=== PATIENT | male | born 1990 | race African-American/Black ===

== ENCOUNTER 2021-05-03 10:22 | Inpatient (IN) ==
[2021-05-03] MEDS ORDERED: ONDANSETRON 4 MG/2 ML VIAL IV STA (12:33)
[2021-05-03] MEDS ORDERED: PANTOPRAZOLE 40 MG VIAL IV STA (12:33)
[2021-05-03] MEDS ORDERED: HYDROmorphone 2 MG/1 ML VIAL IV STA (12:33)
[2021-05-03] MEDS ORDERED: SODIUM CHLORIDE 0.9% 1,000 ML IV STA (12:33)
[2021-05-03 14:22] LABS: Basophils % 0.2 % (0.0-0.8); Eosinophils % 0.4 % (0.00-10.9); Hemoglobin 9.4 GM/DL (14.0-18.0); Immature Granulocytes % 1.8 %; Lymphocytes # 0.6 10*3/uL (1.4-4.0); Lymphocytes % 11.2 % (21.2-54.2); Mean Corpuscular HGB Conc 33.6 GM/DL (32-36); Mean Corpuscular Volume 76.5 FL (87-102); Monocytes % 18.3 % (1.7-12.7); Neutrophils % 68.1 % (38.7-73.9); Platelet Count 145 T/CUMM (130-400); Red Blood Count 3.66 MC/CUMM (3.8-5.5); Red Cell Distribution Width 18.8 % (9.3-17.3); White Blood Count 5.6 T/CUMM (4-12)
[2021-05-03 14:52] LABS: Albumin 2.7 G/DL (3.4-5.0); Bilirubin,Total 1.3 MG/DL (0.20-1.00); Calcium 8.9 MG/DL (8.5-10.1); Osmolality,Calculated 266.4 MOS/KG (273-304); Potassium 3.9 MMOL/L (3.5-5.1); Total Protein 8.5 G/DL (6.4-8.2)
[2021-05-03] MEDS ORDERED: DEXTROSE 50% 25 GM/50 ML VIAL IV PRN (15:35)
[2021-05-03] MEDS ORDERED: hydrALAZINE 20 MG/1 ML VIAL IV PRN (15:35)
[2021-05-03] MEDS ORDERED: GLUCAGON 1 MG VIAL IM PRN (15:35)
[2021-05-03] MEDS ORDERED: COSYNTROPIN 0.25 MG VIAL IV ONE (15:42)
[2021-05-03] MEDS ORDERED: LORazepam 1 MG TABLET PO STA (15:44)
[2021-05-03] MEDS ORDERED: SODIUM CHLORIDE 0.9% 1,000 ML IV SCH (16:00)
[2021-05-03] MEDS: DEXTROSE 5% NACL 0.9% 1,000 ML IV SCH (16:20)
[2021-05-03 16:43] LABS: Eosinophils 2 % (0-10); Lymphocytes 9 % (20-55); Segmented Neutrophils 75 % (50-85); Total Cells Counted 100
[2021-05-03 16:44] LABS: Hypochromasia 2+; Microcytosis Slight; Polychromasia Slight; Target Cells 1+
[2021-05-03 16:46] LABS: Platelet Estimate Normal
[2021-05-03] MEDS: ALBUTEROL 2.5 MG/3 ML NEB RESP TX SCH (19:34)
[2021-05-03 20:18] LABS: Bilirubin,Urine Negative (Negative); Blood, Urine Moderate mg/dL (Negative); Glucose,Urine (UA) Negative (Negative); Hyaline Casts,Urine 47 /LPF (0-3); Ketones,Urine 20 mg/dL (Negative); Mucus,Urine Occasional /LPF (Occasional); Nitrite,Urine Negative (Negative); Protein,Urine 30 MG/DL; RBC,Urine 2 /HPF (0-4); Urine Appearance CLEAR (Clear); Urine Color Amber (Yellow); Urine Specific Gravity 1.049 (1.001-1.035)
[2021-05-03 20:44] LABS: Hematocrit 26.5 VOL% (42.0-52.0); Hemoglobin 8.7 GM/DL (14.0-18.0)
[2021-05-03] MEDS: ACETAMINOPHEN 325 MG TABLET PO PRN (21:43)
[2021-05-03] MEDS: ONDANSETRON 4 MG/2 ML VIAL IV PRN (21:43)
[2021-05-03] MEDS: HYDROmorphone 2 MG/1 ML VIAL IV PRN (21:45)
[2021-05-04] MEDS: ALBUTEROL 2.5 MG/3 ML NEB RESP TX SCH ×4 (01:30→19:50)
[2021-05-04] MEDS ORDERED: COSYNTROPIN 0.25 MG VIAL IV ONE ×2 (04:00→08:00)
[2021-05-04 06:09] LABS: Basophils % 0.8 % (0.0-0.8); Eosinophils # 0.1 10*3/uL (0.0-0.87); Eosinophils % 2.2 % (0.00-10.9); Hematocrit 24.6 VOL% (42.0-52.0); Hemoglobin 8.2 GM/DL (14.0-18.0); Immature Granulocytes % 1.6 %; Immature Granulocytes Absolute 0.06 #; Lymphocytes # 0.4 10*3/uL (1.4-4.0); Lymphocytes % 11.4 % (21.2-54.2); Mean Corpuscular HGB Conc 33.3 GM/DL (32-36); Mean Corpuscular Volume 76.9 FL (87-102); Monocytes % 23.4 % (1.7-12.7); Neutrophils % 60.6 % (38.7-73.9); Platelet Count 121 T/CUMM (130-400); Red Cell Distribution Width 19.2 % (9.3-17.3); White Blood Count 3.7 T/CUMM (4-12)
[2021-05-04 06:30] LABS: Albumin 2.3 G/DL (3.4-5.0); Bilirubin,Total 1.5 MG/DL (0.20-1.00); Calcium 8.6 MG/DL (8.5-10.1); Osmolality,Calculated 264.5 MOS/KG (273-304); Potassium 3.5 MMOL/L (3.5-5.1); Total Protein 7.3 G/DL (6.4-8.2)
[2021-05-04 06:31] LABS: Eosinophils 4 % (0-10); Lymphocytes 12 % (20-55); Platelet Estimate Normal; Segmented Neutrophils 60 % (50-85); Total Cells Counted 100
[2021-05-04 06:32] LABS: Hypochromasia 1+; Microcytosis 1+; Target Cells Few
[2021-05-04] MEDS: PANTOPRAZOLE 40 MG VIAL IV SCH (08:28)
[2021-05-04] MEDS: ONDANSETRON 4 MG/2 ML VIAL IV PRN ×3 (08:28→20:54)
[2021-05-04 08:46] LABS: Hematocrit 23.8 VOL% (42.0-52.0)
[2021-05-04] MEDS: DEXTROSE 5% NACL 0.9% 1,000 ML IV SCH ×2 (08:52→19:38)
[2021-05-04 12:32] LABS: Ferritin 4679.9 ng/ml (26-388)
[2021-05-04] MEDS ORDERED: chlorproMAZINE 25 MG TABLET PO PRN (13:24)
[2021-05-04 13:38] LABS: % Iron Saturation 15.3 % (18-50)
[2021-05-04 13:52] LABS: Folate 2.82 NG/ML (5.38-24.0)
[2021-05-04] MEDS ORDERED: BISACODYL 5 MG TABLET PO ONE (16:00)
[2021-05-04 16:13] LABS: Hematocrit 23.7 VOL% (42.0-52.0); Hemoglobin 7.6 GM/DL (14.0-18.0)
[2021-05-04] MEDS ORDERED: POLYETHYLENE GLYCOL POWDER 255 GM BOTTLE PO ONE (18:00)
[2021-05-05] MEDS: DEXTROSE 5% NACL 0.9% 1,000 ML IV SCH ×3 (01:42→10:48)
[2021-05-05] MEDS ORDERED: POLYETHYLENE GLYCOL POWDER 255 GM BOTTLE PO ONE (05:00)
[2021-05-05] MEDS: ONDANSETRON 4 MG/2 ML VIAL IV PRN ×4 (05:31→20:06)
[2021-05-05] MEDS ORDERED: MAGNESIUM CITRATE 300 ML BOTTLE PO ONE (06:00)
[2021-05-05 06:24] LABS: Basophils % 0.6 % (0.0-0.8); Eosinophils # 0.1 10*3/uL (0.0-0.87); Eosinophils % 3.9 % (0.00-10.9); Hematocrit 20.4 VOL% (42.0-52.0); Hemoglobin 6.9 GM/DL (14.0-18.0); Immature Granulocytes % 2.6 %; Immature Granulocytes Absolute 0.08 #; Lymphocytes # 0.5 10*3/uL (1.4-4.0); Lymphocytes % 15.2 % (21.2-54.2); Mean Corpuscular HGB Conc 33.8 GM/DL (32-36); Mean Corpuscular Volume 76.1 FL (87-102); Neutrophils % 56.7 % (38.7-73.9); Platelet Count 112 T/CUMM (130-400); Red Blood Count 2.68 MC/CUMM (3.8-5.5); Red Cell Distribution Width 18.7 % (9.3-17.3); White Blood Count 3.1 T/CUMM (4-12)
[2021-05-05 06:31] LABS: INR 1.3; PT Patient Result 13.9 SECS (10.5-12.0)
[2021-05-05] MEDS: ALBUTEROL 2.5 MG/3 ML NEB RESP TX SCH ×4 (06:44→18:02)
[2021-05-05 06:54] LABS: Eosinophils 6 % (0-10); Lymphocytes 21 % (20-55); Segmented Neutrophils 45 % (50-85); Total Cells Counted 100
[2021-05-05 06:55] LABS: Calcium 8.3 MG/DL (8.5-10.1); Osmolality,Calculated 272.8 MOS/KG (273-304); Potassium 3.3 MMOL/L (3.5-5.1)
[2021-05-05 06:56] LABS: Anisocytosis 1+; Microcytosis 1+; Platelet Estimate Decreased
[2021-05-05] MEDS ORDERED: SODIUM CHLORIDE 0.9% 1,000 ML IV PRN (07:23)
[2021-05-05] MEDS ORDERED: LACTATED RINGERS 1,000 ML IV SCH (08:00)
[2021-05-05] MEDS: PANTOPRAZOLE 40 MG VIAL IV SCH (09:08)
[2021-05-05] MEDS ORDERED: PROMETHAZINE 25 MG/1 ML VIAL IV ONE (09:13)
[2021-05-05] MEDS ORDERED: PROMETHAZINE 25 MG/1 ML VIAL IM ONE (09:30)
[2021-05-05] MEDS: FOLIC ACID 1 MG TABLET PO SCH (10:15)
[2021-05-05] MEDS ORDERED: propofoL 200 MG/20 ML VIAL IV ONE ×2 (13:16)
[2021-05-05] MEDS ORDERED: LIDOCAINE 2% 5 ML VIAL ONE (13:16)
[2021-05-05] MEDS: HYDROmorphone 2 MG/1 ML VIAL IV PRN ×2 (14:42→20:09)
[2021-05-05] MEDS: FERRIC GLUCONATE COMPLEX 125 MG in SODIUM CHLORIDE 0.9% 100 ML IV SCH (14:44)
[2021-05-05] MEDS: SODIUM CHLOR 0.9% KCL 40 MEQ 40 MEQ/1,000 ML BAG IV SCH (17:38)
[2021-05-05 21:23] LABS: Hematocrit 27.9 VOL% (42.0-52.0)
[2021-05-06] MEDS: ALBUTEROL 2.5 MG/3 ML NEB RESP TX SCH ×4 (01:00→19:34)
[2021-05-06] MEDS: ONDANSETRON 4 MG/2 ML VIAL IV PRN ×2 (01:26→21:28)
[2021-05-06] MEDS: HYDROmorphone 2 MG/1 ML VIAL IV PRN ×3 (01:28→21:25)
[2021-05-06 05:48] LABS: Basophils % 0.2 % (0.0-0.8); Eosinophils # 0.1 10*3/uL (0.0-0.87); Eosinophils % 1.7 % (0.00-10.9); Hematocrit 27.8 VOL% (42.0-52.0); Hemoglobin 9.1 GM/DL (14.0-18.0); Immature Granulocytes % 4.3 %; Immature Granulocytes Absolute 0.18 #; Lymphocytes # 0.4 10*3/uL (1.4-4.0); Lymphocytes % 10.1 % (21.2-54.2); Mean Corpuscular HGB Conc 32.7 GM/DL (32-36); Mean Corpuscular Volume 78.5 FL (87-102); Monocytes % 22.7 % (1.7-12.7); Platelet Count 97 T/CUMM (130-400); Red Blood Count 3.54 MC/CUMM (3.8-5.5); Red Cell Distribution Width 18.8 % (9.3-17.3); White Blood Count 4.2 T/CUMM (4-12)
[2021-05-06 06:21] LABS: Calcium 8.4 MG/DL (8.5-10.1); Osmolality,Calculated 270.8 MOS/KG (273-304)
[2021-05-06] MEDS: SODIUM CHLOR 0.9% KCL 40 MEQ 40 MEQ/1,000 ML BAG IV SCH ×2 (06:33→23:46)
[2021-05-06 06:53] LABS: Band Neutrophils 3 % (0-10); Eosinophils 1 % (0-10); Lymphocytes 7 % (20-55); Segmented Neutrophils 69 % (50-85); Total Cells Counted 100
[2021-05-06 06:54] LABS: Hypochromasia 1+; Microcytosis 1+; Platelet Estimate Decreased; Target Cells Few
[2021-05-06] MEDS ORDERED: LACTATED RINGERS 1,000 ML IV SCH (08:00)
[2021-05-06] MEDS: PANTOPRAZOLE 40 MG VIAL IV SCH (08:18)
[2021-05-06 09:52] LABS: Total Protein 7.1 G/DL (6.4-8.2)
[2021-05-06] MEDS ORDERED: ONDANSETRON 4 MG/2 ML VIAL ONE (10:56)
[2021-05-06] MEDS ORDERED: propofoL 200 MG/20 ML VIAL IV ONE (10:56)
[2021-05-06] MEDS ORDERED: LIDOCAINE 2% 5 ML VIAL ONE (10:56)
[2021-05-06] MEDS ORDERED: PHENYLEPHRINE 1 MG/10 ML SYRINGE IV ONE (11:10)
[2021-05-06] MEDS: FLUCONAZOLE INJ 100 MG/50 ML PREMIX IV SCH (11:55)
[2021-05-06] MEDS: FERRIC GLUCONATE COMPLEX 125 MG in SODIUM CHLORIDE 0.9% 100 ML IV SCH (11:58)
[2021-05-06] MEDS: FOLIC ACID 1 MG TABLET PO SCH (11:58)
[2021-05-07] MEDS: ALBUTEROL 2.5 MG/3 ML NEB RESP TX SCH ×4 (00:03→20:45)
[2021-05-07] MEDS: HYDROmorphone 2 MG/1 ML VIAL IV PRN ×4 (02:51→23:15)
[2021-05-07] MEDS: ONDANSETRON 4 MG/2 ML VIAL IV PRN ×3 (02:53→23:13)
[2021-05-07] MEDS: PANTOPRAZOLE 40 MG VIAL IV SCH (08:36)
[2021-05-07] MEDS: FOLIC ACID 1 MG TABLET PO SCH (08:36)
[2021-05-07 09:16] LABS: Basophils % 0.5 % (0.0-0.8); Eosinophils # 0.1 10*3/uL (0.0-0.87); Eosinophils % 1.5 % (0.00-10.9); Hematocrit 26.9 VOL% (42.0-52.0); Hemoglobin 8.7 GM/DL (14.0-18.0); Immature Granulocytes Absolute 0.29 #; Lymphocytes # 0.4 10*3/uL (1.4-4.0); Lymphocytes % 10.4 % (21.2-54.2); Mean Corpuscular HGB Conc 32.3 GM/DL (32-36); Mean Corpuscular Volume 79.1 FL (87-102); Monocytes % 15.8 % (1.7-12.7); Neutrophils % 64.8 % (38.7-73.9); Platelet Count 106 T/CUMM (130-400); White Blood Count 4.1 T/CUMM (4-12)
[2021-05-07] MEDS: FERRIC GLUCONATE COMPLEX 125 MG in SODIUM CHLORIDE 0.9% 100 ML IV SCH (09:47)
[2021-05-07 09:52] LABS: Anisocytosis 2+; Band Neutrophils 9 % (0-10); Eosinophils 3 % (0-10); Lymphocytes 10 % (20-55); Nucleated Red Blood Cells 1 (0-5); Segmented Neutrophils 63 % (50-85); Total Cells Counted 100
[2021-05-07 09:53] LABS: Hypochromasia 1+; Macrocytosis Slight; Platelet Estimate Adequate
[2021-05-07] MEDS: FLUCONAZOLE INJ 100 MG/50 ML PREMIX IV SCH (11:16)
[2021-05-07] MEDS: SODIUM CHLOR 0.9% KCL 40 MEQ 40 MEQ/1,000 ML BAG IV SCH (13:06)
[2021-05-07] MEDS: ACETAMINOPHEN 325 MG TABLET PO PRN (18:17)
[2021-05-08] MEDS: ALBUTEROL 2.5 MG/3 ML NEB RESP TX SCH ×4 (00:42→19:45)
[2021-05-08] MEDS: SODIUM CHLOR 0.9% KCL 40 MEQ 40 MEQ/1,000 ML BAG IV SCH ×2 (04:15→16:56)
[2021-05-08] MEDS: ACETAMINOPHEN 325 MG TABLET PO PRN (04:18)
[2021-05-08 06:38] LABS: Calcium 8.8 MG/DL (8.5-10.1); Osmolality,Calculated 257.8 MOS/KG (273-304); Potassium 4.8 MMOL/L (3.5-5.1)
[2021-05-08 07:39] LABS: Basophils % 0.5 % (0.0-0.8); Eosinophils # 0.2 10*3/uL (0.0-0.87); Eosinophils % 4.5 % (0.00-10.9); Hematocrit 25.4 VOL% (42.0-52.0); Hemoglobin 8.3 GM/DL (14.0-18.0); Immature Granulocytes % 6.2 %; Immature Granulocytes Absolute 0.25 #; Lymphocytes # 0.5 10*3/uL (1.4-4.0); Lymphocytes % 11.9 % (21.2-54.2); Mean Corpuscular HGB Conc 32.7 GM/DL (32-36); Mean Corpuscular Volume 77.2 FL (87-102); Monocytes % 20.8 % (1.7-12.7); Neutrophils % 56.1 % (38.7-73.9); Platelet Count 86 T/CUMM (130-400); Red Blood Count 3.29 MC/CUMM (3.8-5.5); Red Cell Distribution Width 18.7 % (9.3-17.3)
[2021-05-08] MEDS: HYDROmorphone 2 MG/1 ML VIAL IV PRN ×3 (07:40→22:01)
[2021-05-08] MEDS: ONDANSETRON 4 MG/2 ML VIAL IV PRN ×3 (07:54→22:01)
[2021-05-08 09:15] LABS: Band Neutrophils 5 % (0-10); Eosinophils 5 % (0-10); Lymphocytes 11 % (20-55); Platelet Estimate Decreased; Smudge Cells Few; Total Cells Counted 100
[2021-05-08 09:16] LABS: Anisocytosis 2+; Hypochromasia 1+; Segmented Neutrophils 60 % (50-85)
[2021-05-08] MEDS: FERRIC GLUCONATE COMPLEX 125 MG in SODIUM CHLORIDE 0.9% 100 ML IV SCH (10:45)
[2021-05-08] MEDS: FOLIC ACID 1 MG TABLET PO SCH (10:46)
[2021-05-08] MEDS: PANTOPRAZOLE 40 MG VIAL IV SCH ×2 (10:49→21:45)
[2021-05-08] MEDS: IBUPROFEN 800 MG TABLET PO PRN (12:43)
[2021-05-08] MEDS ORDERED: FLUCONAZOLE INJ 100 MG/50 ML PREMIX IV SCH (13:00)
[2021-05-08] MEDS: FLUCONAZOLE INJ 100 MG/50 ML PREMIX IV SCH (13:17)
[2021-05-08] MEDS: PIPERACILLIN/TAZOBACTAM 3,375 MG in SODIUM CHLORIDE 0.9% 100 ML IV SCH ×2 (16:57→22:00)
[2021-05-09 00:21] LABS: Blood, Urine Moderate mg/dL (Negative); Glucose,Urine (UA) Negative (Negative); Ketones,Urine 20 mg/dL (Negative); Mucus,Urine Many /LPF (Occasional); Nitrite,Urine Negative (Negative); Protein,Urine 30 MG/DL; RBC,Urine 4 /HPF (0-4); Urine Appearance CLEAR (Clear); Urine Color Amber (Yellow); Urine Specific Gravity 1.028 (1.001-1.035)
[2021-05-09 00:23] LABS: Bilirubin,Urine Small mg/dL (Negative)
[2021-05-09] MEDS: ALBUTEROL 2.5 MG/3 ML NEB RESP TX SCH ×4 (00:40→19:50)
[2021-05-09] MEDS: ACETAMINOPHEN 325 MG TABLET PO PRN ×2 (04:11→23:55)
[2021-05-09] MEDS: ONDANSETRON 4 MG/2 ML VIAL IV PRN ×3 (06:02→23:56)
[2021-05-09] MEDS: IBUPROFEN 800 MG TABLET PO PRN ×2 (06:02→20:28)
[2021-05-09] MEDS: PIPERACILLIN/TAZOBACTAM 3,375 MG in SODIUM CHLORIDE 0.9% 100 ML IV SCH ×3 (06:11→23:56)
[2021-05-09 06:24] LABS: Bilirubin,Total 4.1 MG/DL (0.20-1.00); Calcium 8.2 MG/DL (8.5-10.1); Osmolality,Calculated 261.5 MOS/KG (273-304); Potassium 5.3 MMOL/L (3.5-5.1); Total Protein 6.7 G/DL (6.4-8.2)
[2021-05-09] MEDS: HYDROmorphone 2 MG/1 ML VIAL IV PRN ×3 (07:51→23:54)
[2021-05-09] MEDS: PANTOPRAZOLE 40 MG VIAL IV SCH ×3 (07:52→20:29)
[2021-05-09 08:47] LABS: Target Cells 1+
[2021-05-09 08:48] LABS: Anisocytosis 1+; Hypochromasia 3+; Microcytosis 2+; Platelet Estimate Adequate; Polychromasia Slight
[2021-05-09] MEDS: FERRIC GLUCONATE COMPLEX 125 MG in SODIUM CHLORIDE 0.9% 100 ML IV SCH (09:34)
[2021-05-09] MEDS: FOLIC ACID 1 MG TABLET PO SCH (09:36)
[2021-05-09 10:00] LABS: Basophils % 0.2 % (0.0-0.8); Eosinophils # 0.2 10*3/uL (0.0-0.87); Eosinophils % 4.1 % (0.00-10.9); Hematocrit 26.4 VOL% (42.0-52.0); Hemoglobin 8.9 GM/DL (14.0-18.0); Immature Granulocytes % 6.7 %; Immature Granulocytes Absolute 0.31 #; Lymphocytes # 0.4 10*3/uL (1.4-4.0); Lymphocytes % 8.9 % (21.2-54.2); Mean Corpuscular HGB Conc 33.7 GM/DL (32-36); Mean Corpuscular Volume 78.3 FL (87-102); Monocytes % 14.6 % (1.7-12.7); Neutrophils % 65.5 % (38.7-73.9); Platelet Count 76 T/CUMM (130-400); Red Blood Count 3.37 MC/CUMM (3.8-5.5); Red Cell Distribution Width 18.9 % (9.3-17.3); White Blood Count 4.6 T/CUMM (4-12)
[2021-05-09 10:20] LABS: Band Neutrophils 1 % (0-10); Eosinophils 3 % (0-10); Lymphocytes 5 % (20-55); Segmented Neutrophils 76 % (50-85); Total Cells Counted 100
[2021-05-09] MEDS: FLUCONAZOLE INJ 100 MG/50 ML PREMIX IV SCH (13:15)
[2021-05-09] MEDS: LORazepam 0.5 MG TABLET PO PRN (15:11)
[2021-05-09] MEDS: SODIUM CHLOR 0.9% KCL 40 MEQ 40 MEQ/1,000 ML BAG IV SCH (16:41)
[2021-05-10] MEDS: ALBUTEROL 2.5 MG/3 ML NEB RESP TX SCH ×2 (02:12→07:09)
[2021-05-10] MEDS: SODIUM CHLOR 0.9% KCL 40 MEQ 40 MEQ/1,000 ML BAG IV SCH ×2 (02:35→14:26)
[2021-05-10] MEDS: PIPERACILLIN/TAZOBACTAM 3,375 MG in SODIUM CHLORIDE 0.9% 100 ML IV SCH (06:36)
[2021-05-10 07:01] LABS: Albumin 1.9 G/DL (3.4-5.0); Bilirubin,Total 3.1 MG/DL (0.20-1.00); Calcium 8.2 MG/DL (8.5-10.1); Osmolality,Calculated 261.7 MOS/KG (273-304); Potassium 4.3 MMOL/L (3.5-5.1); Total Protein 6.8 G/DL (6.4-8.2)
[2021-05-10 07:46] LABS: Hepatitis B Core IgM Quant 0.16 Index; Hepatitis B Surface Ag Quant < 0.10 Index; Hepatitis B Surface Ag Result Non-Reactive (NonReactive); Hepatitis C Virus Ab Quant 0.29 Index; Hepatitis C Virus Ab Result Non-Reactive (NonReactive)
[2021-05-10 08:25] LABS: Total Protein (Chem) 7.1 G/DL (6.4-8.3)
[2021-05-10 08:26] LABS: Basophils % 0.5 % (0.0-0.8); Eosinophils # 0.1 10*3/uL (0.0-0.87); Eosinophils % 2.5 % (0.00-10.9); Hematocrit 25.2 VOL% (42.0-52.0); Hemoglobin 8.3 GM/DL (14.0-18.0); Immature Granulocytes % 8.5 %; Immature Granulocytes Absolute 0.34 #; Lymphocytes # 0.6 10*3/uL (1.4-4.0); Lymphocytes % 14.1 % (21.2-54.2); Mean Corpuscular HGB Conc 32.9 GM/DL (32-36); Mean Corpuscular Volume 77.8 FL (87-102); Monocytes % 21.4 % (1.7-12.7); Red Blood Count 3.24 MC/CUMM (3.8-5.5); Red Cell Distribution Width 18.6 % (9.3-17.3)
[2021-05-10 08:28] LABS: Platelet Count 51 T/CUMM (130-400)
[2021-05-10 08:51] LABS: Eosinophils 1 % (0-10); Lymphocytes 12 % (20-55); Platelet Estimate Decreased; Segmented Neutrophils 74 % (50-85); Total Cells Counted 100
[2021-05-10 08:52] LABS: Hypochromasia 1+; Microcytosis 1+
[2021-05-10] MEDS: FOLIC ACID 1 MG TABLET PO SCH (10:14)
[2021-05-10] MEDS: PANTOPRAZOLE 40 MG VIAL IV SCH (10:15)
[2021-05-10] MEDS: FERRIC GLUCONATE COMPLEX 125 MG in SODIUM CHLORIDE 0.9% 100 ML IV SCH (10:15)
[2021-05-10] MEDS: ONDANSETRON 4 MG/2 ML VIAL IV PRN (10:32)
[2021-05-10] MEDS: HYDROmorphone 2 MG/1 ML VIAL IV PRN (10:38)
[2021-05-10 11:09] LABS: Albumin (SPE) 3.2 G/DL (3.2-5.3); Albumin (SPE) Rel % 44.7 %; Alpha 1 (SPE) 0.3 G/DL (0.1-0.4); Alpha 1 (SPE) Rel % 4.8 %; Alpha 2 (SPE) 0.9 G/DL (0.4-1.0); Alpha 2 (SPE) Rel % 12.3 %; Beta (SPE) 0.7 G/DL (0.5-1.1); Beta (SPE) Rel % 10.5 %; Gamma (SPE) Rel % 27.7 %
[2021-05-10 11:34] VITALS: BP 117/62
[2021-05-10 11:49] LABS: Immuno Free Light Chain Kappa 8.15 MG/DL (0.33-1.94); Immuno Free Light Chain Lambda 7.43 MG/DL (0.57-2.63); Immuno Free Light Chain Ratio 1.1 MG/DL (0.26-1.65)
[2021-05-10] MEDS: LORazepam 0.5 MG TABLET PO PRN (11:59)
[2021-05-10] MEDS: FLUCONAZOLE INJ 100 MG/50 ML PREMIX IV SCH (12:01)
[2021-05-10] MEDS ORDERED: PANTOPRAZOLE 40 MG TABLET PO SCH (21:00)
== END 2021-05-10 14:25 | disposition home or self-care (01) | DRG 975 ==
LOC: SUATTDRO → N.ED 10:22 → SUATTDRO 15:35 → N.EDINP 15:35 → N.5E 05-04 04:44
PROVIDERS: ADMIT Internal Medicine; ATTEND Internal Medicine

== ENCOUNTER 2021-05-14 23:32 | Inpatient (IN) ==
[2021-05-14] MEDS ORDERED: SODIUM CHLORIDE 0.9% 2,000 ML IV STA (23:53)
[2021-05-15 01:45] LABS: Albumin 1.8 G/DL (3.4-5.0); Bilirubin,Total 2.3 MG/DL (0.20-1.00); Calcium 8.2 MG/DL (8.5-10.1); Osmolality,Calculated 263.1 MOS/KG (273-304); Potassium 4.5 MMOL/L (3.5-5.1); Total Protein 6.6 G/DL (6.4-8.2)
[2021-05-15 02:05] LABS: Bacteria,Urine Few /HPF (Few); Blood, Urine Large mg/dL (Negative); Glucose,Urine (UA) Negative (Negative); Hyaline Casts,Urine 10 /LPF (0-3); Ketones,Urine Negative (Negative); Mucus,Urine Few /LPF (Occasional); Nitrite,Urine Negative (Negative); Protein,Urine 30 MG/DL; RBC,Urine 13 /HPF (0-4); Squamous Epithelial Cell,Urine Occasional /HPF (0-10); Urine Appearance CLOUDY (Clear); Urine Color Amber (Yellow); Urine Specific Gravity 1.024 (1.001-1.035)
[2021-05-15 02:06] LABS: Bilirubin,Urine Small mg/dL (Negative)
[2021-05-15 02:09] LABS: Basophils % 0.4 % (0.0-0.8); Eosinophils % 0.4 % (0.00-10.9); Immature Granulocytes % 16.5 %; Immature Granulocytes Absolute 0.43 #; Lymphocytes # 0.4 10*3/uL (1.4-4.0); Lymphocytes % 14.9 % (21.2-54.2); Mean Corpuscular Volume 78.4 FL (87-102); Monocytes % 20.3 % (1.7-12.7); Neutrophils % 47.5 % (38.7-73.9); Red Blood Count 2.27 MC/CUMM (3.8-5.5); Red Cell Distribution Width 18.9 % (9.3-17.3); White Blood Count 2.6 T/CUMM (4-12)
[2021-05-15 02:14] LABS: Hematocrit 17.8 VOL% (42.0-52.0); Hemoglobin 5.7 GM/DL (14.0-18.0); Platelet Count 22 T/CUMM (130-400)
[2021-05-15 02:39] LABS: Band Neutrophils 1 % (0-10); Lymphocytes 12 % (20-55); Metamyelocytes 2 %; Myelocytes 1 %; Platelet Estimate Decreased; Segmented Neutrophils 74 % (50-85); Total Cells Counted 100
[2021-05-15 02:40] LABS: Hypochromasia 2+; Microcytosis 1+
[2021-05-15] MEDS ORDERED: SODIUM CHLORIDE 0.9% 1,000 ML IV PRN ×2 (03:27→03:28)
[2021-05-15] MEDS ORDERED: GLUCAGON 1 MG VIAL IM PRN (05:19)
[2021-05-15] MEDS ORDERED: DEXTROSE 50% 25 GM/50 ML VIAL IV PRN (05:19)
[2021-05-15] MEDS ORDERED: BISACODYL 5 MG TABLET PO PRN (05:20)
[2021-05-15] MEDS: ONDANSETRON 4 MG/2 ML VIAL IV PRN (07:06)
[2021-05-15] MEDS: SODIUM CHLORIDE 0.9% 1,000 ML IV SCH ×2 (07:06→16:34)
[2021-05-15] MEDS ORDERED: CEFUROXIME 500 MG TABLET PO SCH (09:00)
[2021-05-15] MEDS: PANTOPRAZOLE 40 MG TABLET PO SCH ×2 (09:14→22:11)
[2021-05-15] MEDS: FOLIC ACID 1 MG TABLET PO SCH (09:14)
[2021-05-15] MEDS: NYSTATIN 500,000 UNIT/5 ML UDCUP PO SCH ×3 (09:14→22:11)
[2021-05-15] MEDS: MORPHINE 2 MG/1 ML SYRINGE IV PRN (09:15)
[2021-05-15] MEDS: FLUCONAZOLE 200 MG TABLET PO SCH (09:15)
[2021-05-15] MEDS: ACETAMINOPHEN 325 MG TABLET PO PRN (12:32)
[2021-05-15] MEDS: IBUPROFEN 400 MG TABLET PO PRN (16:32)
[2021-05-16] MEDS: ACETAMINOPHEN 325 MG TABLET PO PRN ×2 (01:08→14:19)
[2021-05-16] MEDS: SODIUM CHLORIDE 0.9% 1,000 ML IV SCH ×3 (01:10→18:36)
[2021-05-16] MEDS: ONDANSETRON 4 MG/2 ML VIAL IV PRN ×4 (04:59→19:36)
[2021-05-16] MEDS: MORPHINE 2 MG/1 ML SYRINGE IV PRN ×2 (04:59→15:16)
[2021-05-16 06:20] LABS: Basophils % 0.8 % (0.0-0.8); Eosinophils % 1.1 % (0.00-10.9); Hematocrit 24.8 VOL% (42.0-52.0); Immature Granulocytes % 23.1 %; Immature Granulocytes Absolute 0.61 #; Lymphocytes # 0.3 10*3/uL (1.4-4.0); Lymphocytes % 12.1 % (21.2-54.2); Mean Corpuscular HGB Conc 32.3 GM/DL (32-36); Mean Corpuscular Volume 82.4 FL (87-102); Monocytes % 18.2 % (1.7-12.7); Neutrophils % 44.7 % (38.7-73.9); White Blood Count 2.6 T/CUMM (4-12)
[2021-05-16 06:25] LABS: Red Blood Count 3.01 MC/CUMM (3.8-5.5)
[2021-05-16 06:27] LABS: Platelet Count 24 T/CUMM (130-400)
[2021-05-16 06:45] LABS: Band Neutrophils 3 % (0-10); Eosinophils 3 % (0-10); Hypochromasia 1+; Lymphocytes 10 % (20-55); Microcytosis 1+; Platelet Estimate Decreased; Segmented Neutrophils 70 % (50-85); Total Cells Counted 100
[2021-05-16 06:53] LABS: Albumin 1.7 G/DL (3.4-5.0); Bilirubin,Total 2.7 MG/DL (0.20-1.00); Calcium 7.8 MG/DL (8.5-10.1); Osmolality,Calculated 266.5 MOS/KG (273-304); Potassium 4.6 MMOL/L (3.5-5.1)
[2021-05-16] MEDS: PANTOPRAZOLE 40 MG TABLET PO SCH ×2 (09:18→20:57)
[2021-05-16] MEDS: PROMETHAZINE INJ 25 MG in SODIUM CHLORIDE 0.9% 50 ML IV PRN ×3 (09:18→21:51)
[2021-05-16] MEDS: FOLIC ACID 1 MG TABLET PO SCH (09:18)
[2021-05-16] MEDS: FLUCONAZOLE 200 MG TABLET PO SCH (09:18)
[2021-05-16] MEDS: NYSTATIN 500,000 UNIT/5 ML UDCUP PO SCH ×3 (09:19→20:57)
[2021-05-16] MEDS: IBUPROFEN 400 MG TABLET PO PRN (16:31)
[2021-05-16] MEDS ORDERED: ACETAMINOPHEN 325 MG TABLET PO PRN (16:46)
[2021-05-17] MEDS: SODIUM CHLORIDE 0.9% 1,000 ML IV SCH ×4 (02:10→23:03)
[2021-05-17 04:39] LABS: Basophils % 0.4 % (0.0-0.8); Eosinophils # 0.1 10*3/uL (0.0-0.87); Eosinophils % 1.9 % (0.00-10.9); Hematocrit 24.3 VOL% (42.0-52.0); Hemoglobin 7.8 GM/DL (14.0-18.0); Immature Granulocytes % 16.8 %; Immature Granulocytes Absolute 0.45 #; Lymphocytes # 0.4 10*3/uL (1.4-4.0); Lymphocytes % 13.4 % (21.2-54.2); Mean Corpuscular HGB Conc 32.1 GM/DL (32-36); Mean Corpuscular Volume 80.7 FL (87-102); Monocytes % 20.9 % (1.7-12.7); Neutrophils % 46.6 % (38.7-73.9); Red Blood Count 3.01 MC/CUMM (3.8-5.5); Red Cell Distribution Width 19.5 % (9.3-17.3); White Blood Count 2.7 T/CUMM (4-12)
[2021-05-17 04:44] LABS: Platelet Count 24 T/CUMM (130-400)
[2021-05-17 04:52] LABS: Albumin 1.4 G/DL (3.4-5.0); Bilirubin,Total 2.8 MG/DL (0.20-1.00); Calcium 7.8 MG/DL (8.5-10.1); Osmolality,Calculated 266.5 MOS/KG (273-304); Potassium 4.7 MMOL/L (3.5-5.1); Total Protein 5.8 G/DL (6.4-8.2)
[2021-05-17 04:55] LABS: Band Neutrophils 1 % (0-10); Eosinophils 2 % (0-10); Lymphocytes 9 % (20-55); Platelet Estimate Decreased; Segmented Neutrophils 68 % (50-85); Total Cells Counted 100
[2021-05-17 04:57] LABS: Hypochromasia 1+; Microcytosis 1+
[2021-05-17] MEDS: PROMETHAZINE INJ 25 MG in SODIUM CHLORIDE 0.9% 50 ML IV PRN ×3 (05:42→21:19)
[2021-05-17] MEDS: ONDANSETRON 4 MG/2 ML VIAL IV PRN ×2 (09:00→17:43)
[2021-05-17] MEDS: PANTOPRAZOLE 40 MG TABLET PO SCH (09:02)
[2021-05-17] MEDS: FOLIC ACID 1 MG TABLET PO SCH (09:02)
[2021-05-17] MEDS: NYSTATIN 500,000 UNIT/5 ML UDCUP PO SCH ×3 (09:02→20:22)
[2021-05-17] MEDS: FLUCONAZOLE 200 MG TABLET PO SCH (09:06)
[2021-05-17] MEDS: MORPHINE 2 MG/1 ML SYRINGE IV PRN ×2 (13:27→21:20)
[2021-05-17] MEDS: ACETAMINOPHEN 650 MG SUPP RECTAL PRN (14:38)
[2021-05-17] MEDS: IBUPROFEN 400 MG TABLET PO PRN (17:43)
[2021-05-18] MEDS: PROMETHAZINE INJ 25 MG in SODIUM CHLORIDE 0.9% 50 ML IV PRN ×3 (04:37→21:25)
[2021-05-18 07:12] LABS: Basophils % 0.8 % (0.0-0.8); Eosinophils # 0.1 10*3/uL (0.0-0.87); Eosinophils % 2.1 % (0.00-10.9); Hematocrit 23.3 VOL% (42.0-52.0); Hemoglobin 7.3 GM/DL (14.0-18.0); Immature Granulocytes % 17.6 %; Immature Granulocytes Absolute 0.42 #; Lymphocytes # 0.4 10*3/uL (1.4-4.0); Lymphocytes % 15.5 % (21.2-54.2); Mean Corpuscular HGB Conc 31.3 GM/DL (32-36); Mean Corpuscular Volume 82.6 FL (87-102); Monocytes % 20.6 % (1.7-12.7); Neutrophils % 43.4 % (38.7-73.9); Red Blood Count 2.82 MC/CUMM (3.8-5.5); Red Cell Distribution Width 19.8 % (9.3-17.3); White Blood Count 2.4 T/CUMM (4-12)
[2021-05-18 07:17] LABS: Platelet Count 25 T/CUMM (130-400)
[2021-05-18] MEDS: SODIUM CHLORIDE 0.9% 1,000 ML IV SCH ×2 (07:26→21:24)
[2021-05-18 07:39] LABS: Eosinophils 2 % (0-10); Lymphocytes 7 % (20-55); Platelet Estimate Decreased; Segmented Neutrophils 74 % (50-85); Total Cells Counted 100
[2021-05-18 07:40] LABS: Hypochromasia 1+; Microcytosis 1+
[2021-05-18 07:48] LABS: Albumin 1.3 G/DL (3.4-5.0); Bilirubin,Total 3.6 MG/DL (0.20-1.00); Calcium 7.7 MG/DL (8.5-10.1); Potassium 4.7 MMOL/L (3.5-5.1); Total Protein 5.7 G/DL (6.4-8.2)
[2021-05-18] MEDS ORDERED: SODIUM CHLORIDE 0.9% 1,000 ML IV PRN (08:21)
[2021-05-18] MEDS: PANTOPRAZOLE 40 MG VIAL IV SCH (09:09)
[2021-05-18] MEDS: FLUCONAZOLE 200 MG TABLET PO SCH (09:09)
[2021-05-18] MEDS: NYSTATIN 500,000 UNIT/5 ML UDCUP PO SCH ×3 (09:09→20:06)
[2021-05-18] MEDS: FOLIC ACID 1 MG TABLET PO SCH (09:09)
[2021-05-18] MEDS ORDERED: LORazepam 2 MG/1 ML VIAL IV ONE (12:10)
[2021-05-18] MEDS ORDERED: SULFAMETHOX/TRIMETHOPRIM 800-160 MG TABLET PO SCH (13:00)
[2021-05-18] MEDS: ONDANSETRON 4 MG/2 ML VIAL IV PRN (15:48)
[2021-05-18] MEDS: MORPHINE 2 MG/1 ML SYRINGE IV PRN (15:49)
[2021-05-18] MEDS: IBUPROFEN 400 MG TABLET PO PRN (16:02)
[2021-05-18 16:36] LABS: % CD4 (T Cells) 2 % (32-64); % CD8 (T Cells) 58 % (15-40); 4/8 Ratio 0 (>=0.9)
[2021-05-18] MEDS: SULFAMETH IV SCH (17:24)
[2021-05-18] MEDS: DEXTROSE 5% IV SCH (17:24)
[2021-05-18] MEDS: TRIMETH IV SCH (17:24)
[2021-05-18] MEDS: ACETAMINOPHEN 650 MG SUPP RECTAL PRN (20:09)
[2021-05-19] MEDS: DEXTROSE 5% IV SCH ×2 (01:05→09:25)
[2021-05-19] MEDS: SULFAMETH IV SCH ×2 (01:05→09:25)
[2021-05-19] MEDS: TRIMETH IV SCH ×2 (01:05→09:25)
[2021-05-19 07:24] LABS: Basophils % 0.7 % (0.0-0.8); Eosinophils # 0.1 10*3/uL (0.0-0.87); Immature Granulocytes % 19.9 %; Immature Granulocytes Absolute 0.59 #; Lymphocytes # 0.4 10*3/uL (1.4-4.0); Lymphocytes % 13.5 % (21.2-54.2); Mean Corpuscular Volume 82.2 FL (87-102); Monocytes % 19.9 % (1.7-12.7); Red Blood Count 3.04 MC/CUMM (3.8-5.5); Red Cell Distribution Width 19.6 % (9.3-17.3)
[2021-05-19 07:26] LABS: Platelet Count 23 T/CUMM (130-400)
[2021-05-19] MEDS ORDERED: SODIUM CHLORIDE 0.9% 1,000 ML IV PRN (07:49)
[2021-05-19 08:03] LABS: Albumin 1.4 G/DL (3.4-5.0); Bilirubin,Total 3.9 MG/DL (0.20-1.00); Calcium 7.5 MG/DL (8.5-10.1); Osmolality,Calculated 267.4 MOS/KG (273-304); Potassium 4.8 MMOL/L (3.5-5.1); Total Protein 5.7 G/DL (6.4-8.2)
[2021-05-19 08:22] LABS: Band Neutrophils 2 % (0-10); Eosinophils 2 % (0-10); Hypochromasia 1+; Lymphocytes 15 % (20-55); Microcytosis 1+; Platelet Estimate Decreased; Segmented Neutrophils 65 % (50-85); Total Cells Counted 100
[2021-05-19] MEDS: NYSTATIN 500,000 UNIT/5 ML UDCUP PO SCH (09:33)
[2021-05-19] MEDS: FOLIC ACID 1 MG TABLET PO SCH (09:33)
[2021-05-19] MEDS: PANTOPRAZOLE 40 MG VIAL IV SCH (09:33)
[2021-05-19] MEDS: FLUCONAZOLE 200 MG TABLET PO SCH (09:33)
[2021-05-19 12:24] VITALS: BP 125/70
== END 2021-05-19 14:04 | disposition hospice, home (50) | DRG 975 ==
LOC: EDBD → EDUNIT# → N.ED 23:32 → SUATTDRO 05-15 02:49 → N.EDINP 05-15 02:49 → N.TELEN 05-15 04:28
PROVIDERS: ADMIT Hospitalist; ATTEND Internal Medicine